=== PATIENT | male | born 1930 | race Caucasian/White ===

== ENCOUNTER → 2019-09-21 | Outpatient (CLI) | payer MEDICARE ==
[2019-09-21 08:57] LABS: CREATININE 1.2 mg/dL (0.5-1.5)
== END | disposition home or self-care (01) ==
LOC: LAB 08:13
PROVIDERS: ATTEND Otolaryngology Plastic Surgery within the Head & Neck
DX: R49.0 Dysphonia (principal); R49.8 Other voice and resonance disorders
CPT/HCPCS: 36415; 82565; 84520

== ENCOUNTER → 2019-09-25 | Outpatient (CLI) | payer MEDICARE ==
[~2019-09-25] MED LIST: IOHEXOL-350 50ML VIAL IV ONE
== END | disposition home or self-care (01) ==
LOC: RAH 10:14
PROVIDERS: ATTEND Otolaryngology Plastic Surgery within the Head & Neck
DX: G31.1 Senile degeneration of brain, not elsewhere classified (principal); I67.82 Cerebral ischemia; E04.1 Nontoxic single thyroid nodule; M47.814 Spondylosis without myelopathy or radiculopathy, thoracic region; I70.0 Atherosclerosis of aorta; R49.0 Dysphonia; R49.9 Unspecified voice and resonance disorder
CPT/HCPCS: 70470; 71046; 76536; Q9967